=== PATIENT | male | born 1960 ===

== ENCOUNTER 2021-03-02 15:55 | Emergency (ER) | payer MEDICAID ==
[~2021-03-02] VITALS: Ht 170.1 cm; Wt 95.2 kg
[2021-03-02 16:48] LABS: ALBUMIN 4.1 GM/DL (3.2-4.5)
[2021-03-02 16:49] LABS: POTASSIUM 4.8 MMOL/L (3.6-5.0)
[2021-03-02 16:50] LABS: CALCIUM 9.5 MG/DL (8.5-10.1)
[2021-03-02 16:51] LABS: TOTAL PROTEIN 7.6 GM/DL (6.4-8.2)
[2021-03-02 16:53] LABS: BASOPHILS % (AUTO) 0 % (0-10); BILIRUBIN,TOTAL 0.4 MG/DL (0.1-1.0); EOSINOPHILS # (AUTO) 0.1 10^3/uL (0.0-0.3); EOSINOPHILS % (AUTO) 2 % (0-10); HEMATOCRIT 38 % (40-54); HEMOGLOBIN 13.6 g/dL (13.3-17.7); LYMPHOCYTES # (AUTO) 1.7 X 10^3 (1.0-4.0); LYMPHOCYTES % (AUTO) 26 % (12-44); MEAN CORPUSCULAR HEMOGLOBIN 29 pg (25-34); MEAN CORPUSCULAR HGB CONC 35 g/dL (32-36); MEAN CORPUSCULAR VOLUME 80 fL (80-99); MEAN PLATELET VOLUME 9.6 fL (9.0-12.2); MONOCYTES # (AUTO) 0.4 X 10^3 (0.0-1.0); MONOCYTES % (AUTO) 7 % (0-12); NEUTROPHILS # (AUTO) 4.1 X 10^3 (1.8-7.8); NEUTROPHILS % (AUTO) 65 % (42-75); PLATELET COUNT 269 10^3/uL (130-400); WHITE BLOOD COUNT 6.4 10^3/uL (4.3-11.0)
[2021-03-02 16:55] LABS: CREATININE SERUM 1.78 MG/DL (0.60-1.30)
[2021-03-02 16:58] LABS: MAGNESIUM 1.7 MG/DL (1.6-2.4)
[2021-03-02] MEDS ORDERED: NS IV 1000 ML 1,000 ML IV ONE (17:15)
[2021-03-02] MEDS ORDERED: inSUlin (REGULAR) HUMAN 1 UNIT/0.01 ML (CHARGE PER UNIT) IV ONE ×2 (17:15→18:45)
[2021-03-02] MEDS ORDERED: fentaNYL INJ 100 MCG/2 ML AMP IVP ONE (17:30)
[2021-03-02 17:37] LABS: BILIRUBIN,URINE NEGATIVE (NEGATIVE); CLARITY,URINE CLEAR; COLOR,URINE YELLOW; GLUCOSE, URINE (UA) 3+ (NEGATIVE); KETONES,URINE NEGATIVE (NEGATIVE); LEUKOCYTE ESTERASE ,URINE NEGATIVE (NEGATIVE); NITRITE,URINE NEGATIVE (NEGATIVE); PH,URINE 5.5 (5-9); PROTEIN,URINE TRACE (NEGATIVE)
--- NOTE | 2021-03-02 17:42 | Diagnostic Imaging Report ---
EXAMINATION: Chest 1 view HISTORY: Shortness of breath. COMPARISON: None available. FINDINGS: The lung volumes are normal. No focal consolidation is seen. No large pleural effusion or pneumothorax is seen. The cardiomediastinal silhouette is prominent. No acute osseous abnormality is seen. IMPRESSION: 1. Cardiomegaly. No overt pulmonary edema. Dictated by: Dictated on workstation # [id number]
[2021-03-02 17:46] LABS: BACTERIA,URINE NEGATIVE /HPF
[2021-03-02] MEDS ORDERED: NS IV 1000 ML 1,000 ML IV SCH (18:45)
[2021-03-02] MEDS ORDERED: morphine INJ 10 MG/ML 1ML (SYR OR VIAL) IVP STA (19:09)
--- NOTE | 2021-03-02 19:21 | ED General ---
General Chief Complaint: Abdominal/GI Problems Stated Complaint: STAGE III KIDNEY DISEASE/DIARRHEA/CRAMPS Nursing Triage Note: Pt ambulatory to rm 2. Pt reports having chronic kidney disease and "feels as if kidneys are shutting down." Pt c/o famy urine, diarrhea, achey hands and feet. Pt reports symptoms have persisted for several days. Nursing Sepsis Screen: No Definite Risk Source of Information: Patient, Family Exam Limitations: No Limitations History of Present Illness Date Seen by Provider: Mar 02, 2021 Time Seen by Provider: 15:59 Initial Comments This 60-year-old gentleman presents to the emergency room with generalized illness over the past couple of days that includes diarrhea, body aching and burning, backache, balance difficulty, shortness of air, mild confusion, and foamy urine. Patient has a history of episodes of acute on chronic renal failure. He reports this feels like an exacerbation of renal failure. He is visiting to help care for his mother before a surgery. He and his traveled here from [facility] where they live. He is afebrile at present. He later reports some recent episodes of chest pain. He states a heart catheteri zation was performed in the remote past at an [id number] facility. He believes there may have been angioplasty done but no stents were placed. Patient reports his diabetes is poorly controlled and his most recent A1c was 12. Allergies and Home Medications Allergies Coded Allergies: atorvastatin (Verified Allergy, Unknown, Rash, 03/02/21) lisinopril (Verified Allergy, Unknown, 03/02/21) Patient Home Medication List Home Medication List Reviewed: Yes Review of Systems Review of Systems Constitutional: see HPI EENTM: no symptoms reported Respiratory: see HPI Cardiovascular: see HPI Gastrointestinal: see HPI Genitourinary: see HPI Musculoskeletal: see HPI Skin: no symptoms reported Psychiatric/Neurological: See HPI Hematologic/Lymphatic: No Symptoms Reported Immunological/Allergic: no symptoms reported Past Ijzgkaj-Rbwtxd-Quwrkm Hx Past Med/Social Hx: Reviewed Nursing Past Med/Soc Hx Patient Social History Alcohol Use: Denies Use 2nd Hand Smoke Exposure: No Recent Infectious Disease Expo: No Recent Hopitalizations: No Past Medical History Surgeries: Yes Appendectomy, Gallbladder, Tonsillectomy Respiratory: No Cardiac: Yes High Cholesterol, Hypertension Neurological: Yes Neuropathy Genitourinary: Yes (chronic kidney disease) Musculoskeletal: Yes Gout Endocrine: Yes Diabetes, Insulin dep HEENT: No Cancer: No Psychosocial: No Integumentary: No Physical Exam Vital Signs Vital Signs - First Documented 03/02/21 16:13 Temp 36.1 Pulse 111 Resp 20 B/P (MAP) 150/96 (114) Pulse Ox 98 O2 Delivery Room Air Capillary Refill : Less Than 3 Seconds Height, Weight, BMI Height: '" Weight: lbs. oz. 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 Norm as Tested Progress/Results/Core Measures Suspected Sepsis Recent Fever Within 48 Hours: No Infection Criteria Present: None New/Unexplained Altered Menta: No Sepsis Screen: No Definite Risk SIRS Temperature: Pulse: 111 Respiratory Rate: 20 Laboratory Tests 03/02/21 16:30: White Blood Count 6.4 Blood Pressure 150 /96 Mean: 114 Laboratory Tests 03/02/21 16:30: Creatinine 1.78H, Platelet Count 269, Total Bilirubin 0.4 03/02/21 18:20: INR Comment 0.9 Results/Orders Lab Results Laboratory Tests Test 03/02/21 16:10 03/02/21 16:30 03/02/21 16:35 03/02/21 18:20 Range/Units Urine Color YELLOW Urine Clarity CLEAR Urine pH 5.5 5-9 Urine Specific Deale 1.015 L 1.016-1.022 Urine Protein TRACE H NEGATIVE Urine Glucose (UA) 3+ H NEGATIVE Urine Ketones NEGATIVE NEGATIVE Urine Nitrite NEGATIVE NEGATIVE Urine Bilirubin NEGATIVE NEGATIVE Urine Urobilinogen 0.2 < = 1.0 MG/DL Urine Leukocyte Esterase NEGATIVE NEGATIVE Urine RBC (Auto) NEGATIVE NEGATIVE Urine RBC NONE /HPF Urine WBC NONE /HPF Urine Crystals NONE /LPF Urine Bacteria NEGATIVE /HPF Urine Casts NONE /LPF Urine Mucus NEGATIVE /LPF Urine Culture Indicated NO White Blood Count 6.4 4.3-11.0 10^3/uL Red Blood Count 4.78 4.30-5.52 10^6/uL Hemoglobin 13.6 13.3-17.7 g/dL Hematocrit 38 L 40-54 % Mean Corpuscular Volume 80 80-99 fL Mean Corpuscular Hemoglobin 29 25-34 pg Mean Corpuscular Hemoglobin Concent 35 32-36 g/dL Red Cell Distribution Width 13.7 10.0-14.5 % Platelet Count 269 130-400 10^3/uL Mean Platelet Volume 9.6 9.0-12.2 fL Immature Granulocyte % (Auto) 0 % Neutrophils (%) (Auto) 65 42-75 % Lymphocytes (%) (Auto) 26 12-44 % Monocytes (%) (Auto) 7 0-12 % Eosinophils (%) (Auto) 2 0-10 % Basophils (%) (Auto) 0 0-10 % Neutrophils # (Auto) 4.1 1.8-7.8 X 10^3 Lymphocytes # (Auto) 1.7 1.0-4.0 X 10^3 Monocytes # (Auto) 0.4 0.0-1.0 X 10^3 Eosinophils # (Auto) 0.1 0.0-0.3 10^3/uL Basophils # (Auto) 0.0 0.0-0.1 10^3/uL Immature Granulocyte # (Auto) 0.0 0.0-0.1 10^3/uL Sodium Level 129 L 135-145 MMOL/L Potassium Level 4.8 3.6-5.0 MMOL/L Chloride Level 97 L 98-107 MMOL/L Carbon Dioxide Level 18 L 21-32 MMOL/L Anion Gap 14 5-14 MMOL/L Blood Urea Nitrogen 32 H 7-18 MG/DL Creatinine 1.78 H 0.60-1.30 MG/DL Estimat Glomerular Filtration Rate 39 BUN/Creatinine Ratio 18 Glucose Level 629 *H 70-105 MG/DL Calcium Level 9.5 8.5-10.1 MG/DL Corrected Calcium 9.4 8.5-10.1 MG/DL Magnesium Level 1.7 1.6-2.4 MG/DL Total Bilirubin 0.4 0.1-1.0 MG/DL Aspartate Amino Transf (AST/SGOT) 24 5-34 U/L Alanine Aminotransferase (ALT/SGPT) 33 0-55 U/L Alkaline Phosphatase 130 40-136 U/L Total Creatine Kinase 138 30-200 U/L Myoglobin 65.5 10.0-92.0 NG/ML Troponin I < 0.028 <0.028 NG/ML C-Reactive Protein High Sensitivity 0.23 0.00-0.50 MG/DL B-Type Natriuretic Peptide 10.8 <100.0 PG/ML Total Protein 7.6 6.4-8.2 GM/DL Albumin 4.1 3.2-4.5 GM/DL Influenza Type A (RT-PCR) Not Detected Not Detecte Influenza Type B (RT-PCR) Not Detected Not Detecte SARS-CoV-2 RNA (RT-PCR) Not Detected Not Detecte Prothrombin Time 12.2 12.2-14.7 SEC INR Comment 0.9 0.8-1.4 Activated Partial Thromboplast Time 25 24-35 SEC D-Dimer < 0.27 0.00-0.49 UG/ML Test 03/02/21 18:25 03/02/21 20:01 Range/Units Glucometer 570 *H 356 H 70-110 MG/DL My Orders Orders - CARLOS A LOPEZ MD Ed Iv/Invasive Line Start (03/02/21 15:59) Cbc With Automated Diff (03/02/21 15:59) Comprehensive Metabolic Panel (03/02/21 15:59) Magnesium (03/02/21 15:59) Covid 19 Inhouse Test (03/02/21 16:31) Influenza A And B By Pcr (03/02/21 16:31) Ns Iv 1000 Ml (Sodium Chloride 0.9%) (03/02/21 17:15) Insulin (Regular) Human (Novolin R (Per (03/02/21 17:15) Accucheck Stat ONCE (03/02/21 17:18) Accucheck Stat ONCE (03/02/21 17:18) Chest 1 View, Ap/Pa Only (03/02/21 17:19) Hs C Reactive Protein (03/02/21 17:20) Creatine Kinase (03/02/21 17:25) Fentanyl Inj (Sublimaze Injection) (03/02/21 17:30) Ua Culture If Indicated (03/02/21 17:26) BNP (03/02/21 17:58) Ekg Tracing (03/02/21 18:08) Myoglobin Serum (03/02/21 18:08) Protime With Inr (03/02/21 18:08) Partial Thromboplastin Time (03/02/21 18:08) Monitor-Rhythm Ecg Trace Only (03/02/21 18:08) Troponin I (03/02/21 18:08) Insulin (Regular) Human (Novolin R (Per (03/02/21 18:45) Ns Iv 1000 Ml (Sodium Chloride 0.9%) (03/02/21 18:45) Morphine Injection (Morphine Injection (03/02/21 19:09) Fibrin Degradation Products (03/02/21 18:20) Accucheck Stat ONCE (03/02/21 19:59) Medications Given in ED Current Medications Medications Dose Ordered Sig/Juan Route Start Time Stop Time Status Last Admin Dose Admin Insulin Human Regular 10 unit ONCE ONCE IV 03/02/21 18:45 03/02/21 18:46 DC 03/02/21 19:05 10 UNIT Vital Signs/I&O 03/02/21 03/02/21 16:13 20:14 Temp 36.1 36.5 Pulse 111 96 Resp 20 17 B/P (MAP) 150/96 (114) 162/102 (114) Pulse Ox 98 98 O2 Delivery Room Air Room Air 03/03/21 00:00 Intake Total 1000 ml Balance 1000 ml Capillary Refill : Less Than 3 Seconds Blood Pressure Mean: 114 Point of Care Testing Finger Stick Blood Glucose: 570 Blood Glucose Action Taken: RN AND PHYSICIAN NOTIFIED Progress Note : Progress Note Patient was found to be severely hyperglycemic but otherwise work-up was relatively unremarkable. Patient did describe some chest pain in recent days and a chest pain work-up was added. EKG and troponin were negative for ischemia. D-dimer was obtained because of his complaints of bilateral calf pain and tenderness in the context of recent travel. D-dimer was negative. Covid and influenza screening was negative. Based on patient's generalized symptoms of myalgia and weakness, it is possible he is suffering from some type of viral flulike syndrome. His also commented that she has had a sore throat in recent days. Patient was treated with a liter of IV saline and 5 units of insulin. This resulted in a modest reduction in blood sugar. He was then given an additional 1 L saline bolus and 10 units of insulin by IV route. This resulted in a satisfactory reduction in blood sugar. Patient was ultimately discharged with instructions for more strict management of his diabetes including instructions for sliding scale correction after meals. ECG Initial ECG Impression Date: Mar 02, 2021 Initial ECG Impression Time: 18:07 Initial ECG Rate: 101 Initial ECG Rhythm: S.Tach Comment Sinus tachycardia with no ST elevation or depression. No abnormal intervals or axis deviation. Diagnostic Imaging Diagonstic Imaging: Xray Plain Films/CT/US/NM/MRI: chest Comments NAME: LISBETH ELLIOTT [facility] REC#: [id number] PT STATUS: REG ER : 1960 PHYSICIAN: CARLOS A LOPEZ MD ADMIT DATE: 03/02/21/ER Signed Date of Exam:03/02/21 CHEST 1 VIEW, AP/PA ONLY EXAMINATION: Chest 1 view HISTORY: Shortness of breath. COMPARISON: None available. FINDINGS: The lung volumes are normal. No focal consolidation is seen. No large pleural effusion or pneumothorax is seen. The cardiomediastinal silhouette is prominent. No acute osseous abnormality is seen. IMPRESSION: 1. Cardiomegaly. No overt pulmonary edema. Dictated by: Dictated on workstation # [id number] Dict: 03/02/[id number] Trans: 03/02/21 174 AIDEN [id number] Interpreted by: LINA SPAIN DO Electronically signed by: LINA SPAIN DO 03/02/21 1744 Departure Impression Primary Impression: Hyperglycemia Additional Impressions: Flu-like symptoms Poorly controlled diabetes mellitus Chest pain Qualified Codes: R07.9 - Chest pain, unspecified Disposition: 01 HOME, SELF-CARE Condition: Improved Departure-Patient Inst. Decision time for Depature: 20:03 Referrals: NO,LOCAL PHYSICIAN (PCP/Family) Primary Care Physician Patient Instructions: Chest Pain, Hyperglycemia, Adult Add. Discharge Instructions: Drink plenty of water to stay well-hydrated. Eat a diet low in carbohydrates and low in sugars. Use your usual doses of insulin as previously directed. Check your blood sugar fasting in the morning and 2 hours after each meal use an additional correction dose of insulin if your blood sugars are high 2 hours after meals. If blood sugar is 250-299, given additional 5 units of short acting insulin. If blood sugar is 300-349, given additional 10 units of short acting insulin. If blood sugar is 350-399, give additional 15 units of short acting insulin. If blood sugar is 400-450, give additional 20 units of short acting insulin. If blood sugar is greater than 450, return to care. Check blood sugars again about 30 minutes after your correction dose to ensure appropriate response. Call with questions or concerns. Return to care if you have worsening symptoms. All discharge instructions reviewed with patient and/or family. Voiced understanding. CARLOS A LOPEZ MD Mar 02, 2021 19:21
[2021-03-02 19:46] LABS: FIBRIN DEGRADATION PRODUCTS < 0.27 UG/ML (0.00-0.49); INR 0.9 (0.8-1.4); PARTIAL THROMBOPLASTIN TIME 25 SEC (24-35); PROTHROMBIN TIME PATIENT 12.2 SEC (12.2-14.7)
[2021-03-02 20:14] VITALS: BP 162/102
== END 2021-03-02 20:14 | disposition home or self-care (01) ==
LOC: ER 15:58
DX: E11.65 Type 2 diabetes mellitus with hyperglycemia (principal); J11.1 Influenza due to unidentified influenza virus with other respiratory manifestations; R07.9 Chest pain, unspecified; I10 Essential (primary) hypertension; Z20.822 Contact with and (suspected) exposure to COVID-19
CPT/HCPCS: 36415; 71045; 80053; 81000; 82550; 82947; 83735; 83874; 83880; 84484; 85025; 85379; 85610; 85730; 86141; 87636; 93005; 93041